=== PATIENT | male | born 1955 | race Two or more races ===

== ENCOUNTER 2016-10-19 17:18 | Emergency (ER) | payer MEDICAID, OTHER ==
[~2016-10-19] VITALS: Ht 172.7 cm; Wt 75.0 kg
[2016-10-19] MEDS ORDERED: METF500T4 PO (17:23)
[2016-10-19 20:24] VITALS: BP 126/69
[2016-10-19] MEDS ORDERED: BACITRACIN ZINC OINT UDPKT TOP ONE (20:45)
[2016-10-19] MEDS ORDERED: LIDOCAINE HCL 1% 20ML VIAL (Pyxis) INJ MC ONE (20:45)
[2016-10-19] MEDS ORDERED: ACETAMINOPHEN 325MG TABLET PO ONE (20:45)
== END 2016-10-19 22:18 | disposition home or self-care (01) ==
LOC: ER 17:30
DX: L02.416 Cutaneous abscess of left lower limb (principal); E11.9 Type 2 diabetes mellitus without complications; I10 Essential (primary) hypertension
CPT/HCPCS: 10060; 99283; J3490; Z7610